=== PATIENT | female | born 1975 | race Caucasian/White ===

== ENCOUNTER 2019-09-11 15:52 | Emergency (ER) | payer BC, OTHER ==
[~2019-09-11] VITALS: Ht 165.1 cm; Wt 54.4 kg
[2019-09-11] MEDS ORDERED: REMERON15 M2 PO (16:03)
[2019-09-11] MEDS ORDERED: LUNESTA3 MG PO (16:04)
[2019-09-11] MEDS ORDERED: NEURONTIN 400M400 M2 (16:05)
[2019-09-11] MEDS ORDERED: TAMIFLU75 MG PO (17:22)
[2019-09-11] MEDS ORDERED: PROMETH-CODEIN 65 ML PO (17:22)
[2019-09-11 17:35] VITALS: BP 122/66
== END 2019-09-11 17:33 | disposition home or self-care (01) ==
LOC: ER 15:52
DX: J10.1 Influenza due to other identified influenza virus with other respiratory manifestations (principal); Z90.710 Acquired absence of both cervix and uterus; Z88.8 Allergy status to other drugs, medicaments and biological substances; Z87.891 Personal history of nicotine dependence

== ENCOUNTER → 2020-05-21 | Outpatient (CLI) | payer OTHER ==
[~2020-05-21] MED LIST: LUNESTA3 MG PO; NEURONTIN 400M400 M2; PROMETH-CODEIN 65 ML PO; REMERON15 M2 PO; TAMIFLU75 MG PO
== END ==
LOC: LAB 13:09
PROVIDERS: ATTEND Family Medicine
DX: Z20.828 Contact with and (suspected) exposure to other viral communicable diseases (principal)

== ENCOUNTER → 2020-09-06 | Outpatient (CLI) | payer OTHER | LOC: ULTRA 08:37 → BC 08:37 | DX: N63.20 Unspecified lump in the left breast, unspecified quadrant (principal); N60.02 Solitary cyst of left breast ==

== ENCOUNTER → 2020-09-06 | Outpatient (CLI) | payer OTHER | LOC: LAB 11:14 | PROVIDERS: ATTEND Family Medicine | DX: Z20.828 Contact with and (suspected) exposure to other viral communicable diseases (principal) ==